=== PATIENT | female | born 1955 ===

== ENCOUNTER 2022-07-09 15:46 | Emergency (ER) | payer BC ==
[2022-07-09] MEDS: GI Cocktail Oral Solution 30 ML PO ONE (16:14)
[2022-07-09 17:02] LABS: PTT,PARTIAL THROMBOPLSTIN TIME 21.6 SEC (23.6-29.8)
[2022-07-09 17:06] LABS: ANION GAP 7.1 meq/L (7-15); CHLORIDE,CL 102 mmol/L (98-107); ESTIMATED GFR 64 mL/min (>=60); SODIUM,NA 138 mmol/L (136-145)
[2022-07-09] MEDS: Lactulose Soln 10 GM/15 ML 30 ML UD Cup ONE (18:01)
[2022-07-09] MEDS: Lactulose Soln 10 GM/15 ML 30 ML UD Cup PO ONE (18:01)
[2022-07-09] MEDS: Magnesium Citrate Solution 296 ML Bottle PO ONE (18:01)
[2022-07-09] MEDS: Pantoprazole 40 MG Vial IVPUSH ONE (18:03)
[2022-07-09] MEDS: Ketorolac 30 MG/ML SDV IVPUSH ONE (18:03)
[2022-07-09] MEDS: Sodium Chloride 0.9% 10 ML Syringe FLUSH PRN (18:04)
[2022-07-10] MEDS: Lactulose Soln 10 GM/15 ML 30 ML UD Cup PO ONE (07:31)
== END 2022-07-09 18:15 | disposition home or self-care (01) ==
LOC: LL.ED 15:46
DX: R10.33 Periumbilical pain (principal); J44.9 Chronic obstructive pulmonary disease, unspecified; E11.9 Type 2 diabetes mellitus without complications; I10 Essential (primary) hypertension; Z91.012 Allergy to eggs; Z79.899 Other long term (current) drug therapy
CPT/HCPCS: 36415; 74022; 80053; 81003; 82150; 82550; 83605; 83690; 83735; 83880; 84443; 84484; 85025; 85610; 85730; 93005; 93010; 96374; 96375; 99284; 99284-25; A9270-GY; C9113; J1885; J3490